=== PATIENT | female | born 1955 | race Caucasian/White ===

== ENCOUNTER 2016-05-24 10:30 | Observation (INO) | payer OTHER ==
[2016-05-24] MEDS ORDERED: ASPIRIN 325 MG TAB PO ONE (10:50)
--- NOTE | 2016-05-24 10:52 | CPEKG ---
Heart Rate: 82 RR Interval: 732 P-R Interval: 176 QRSD Interval: 94 QT Interval: 384 QTC Interval: 449 P [place]: 54 QRS [place]: 4 T Wave [place]: 23 EKG Severity - BORDERLINE ECG - EKG Impression: SINUS RHYTHM EKG Impression: BORDERLINE INFERIOR Q WAVES Electronically Signed By: Jack Carrasco 24-May-2016 15:41:11
[2016-05-24 11:07] LABS: % IMMATURE GRANULYOCYTES 0.2 % (0.0-1.1); ABSOLUTE IMMATURE GRANULOCYTES 0.01 10^3/uL (0.00-0.10); ADD DIFF? NO; ADD MORPH? NO; ADD SCAN? NO; ATYPICAL LYMPHOCYTE FLAG 0 (0-99); FRAGMENT RBC FLAG 0 (0-99); HEMATOCRIT 44.3 % (38.0-47.0); HEMOGLOBIN 14.5 g/dL (12.6-16.3); LEFT SHIFT FLG 0 (0-99); LIPEMIA HEMOLYSIS FLAG 80 (0-99); MEAN CELL HEMOGLOBIN 31.7 pg (27.9-34.1); MEAN CELL HEMOGLOBIN CONCENTR. 32.7 g/dL (32.4-36.7); MEAN CELL VOLUME 96.7 fL (81.5-99.8); MEAN PLATELET VOLUME 9.4 fL (8.7-11.7); PLATELET CLUMPS FLAG 0 (0-99); PLATELET COUNT 202 10^3/uL (150-400); RED BLOOD CELL COUNT 4.58 10^6/uL (4.18-5.33); RED CELL DISTRIBUTION WIDTH 12.1 % (11.5-15.2)
[2016-05-24] MEDS ORDERED: NITROGLYCERIN 0.4 MG BTL SL ONE (11:15)
[2016-05-24] MEDS ORDERED: NS 1,000 ML IV ONE (11:15)
--- NOTE | 2016-05-24 11:20 | UCPHY ---
H & P Patient Type: Established Chief Complaint Nursing Narrative: HERE WITH CP WOKE HER UP AT MIDNIGHT; THOUGHT IT WAS HEARTBURN; DID FALL BACK ASLEEP THEN REAWAKENED AT 0430 Time Seen by Provider: 05/24/16 11:03 HPI/ROS: This patient awakened with substernal chest pain described as sharp in achy in nature at midnight last night 8/10 intensity radiating to the left arm. She reports no associated symptoms except some paresthesias in the left arm the wax and wane. Pain is been constant since then though of lesser intensity. Currently the pain is 6/10 in the arm and 4-10 in the chest. She notes no exacerbating or alleviating factors except that may be slightly worse when she is lying on her left side. She has never had this discomfort before. She felt well last night when she went to bed. ROS: No fevers chills or other constitutional symptoms HEENT: No complaints pulmonary: No pleuritic pain. No coughing. Cardiovascular: No lightheadedness. No lower extremity swelling. She has no heart palpitations. No diaphoresis. No nausea or other GI symptoms except for some flatus last night. However flatus did not affect her chest pain. She reports no musculoskeletal complaints. No recent trauma. 10 point ROS is otherwise negative. Source: Patient Exam Limitations: No limitations - Personal History Current Tetanus Diphtheria and Acellular Pertussis (TDAP): Yes Tetanus Vaccine Date: WITHIN 10 YRS - Medical/Surgical History PMH: Hypertension Cholesterol status is unknown Hx Asthma: Yes Hx Chronic Respiratory Disease: No Hx Diabetes: No Hx Cardiac Disease: No Hx Renal Disease: No Hx Cirrhosis: No Hx Alcoholism: No Hx HIV/AIDS: No Hx Splenectomy or Spleen Trauma: No Other PMH: remote history of mono,HTN, WRIST SURG, C/S - Family History Significant Family History: No pertinent family hx - Social History Smoking Status: Never smoked Alcohol Use: Occasionally Drug Use: Other (Occasional marijuana no other drug use) - Physical Exam Exam: General Appearance: Alert, no distress. Eyes: Pupils equal and round no pallor or injection. ENT, Mouth: Mucous membranes moist. Respiratory: There are no retractions, lungs are clear to auscultation. Cardiovascular: Regular rate and rhythm. No murmur gallop or rub. No JVD. No peripheral edema. No leg tenderness. Gastrointestinal: Abdomen is soft and nontender, no masses, bowel sounds normal. Neurological: Alert with no focal deficits. Skin: Warm and dry, no rashes. Musculoskeletal: Neck is supple nontender. Extremities are symmetrical, full range of motion. Psychiatric: Mood and affect are normal DIFFERENTIAL DIAGNOSIS: After history and physical exam differential diagnosis was considered for angina, CT, pneumonia, pneumothorax, GERD Constitutional: Initial Vital Signs Temperature (C) 36.8 C 05/24/16 10:45 Heart Rate 93 05/24/16 10:45 Respiratory Rate 20 05/24/16 10:45 Blood Pressure 153/99 H 05/24/16 10:45 O2 Sat (%) 97 05/24/16 10:45 O2 Delivery Mode Room Air Allergies/Adverse Reactions: No Known Allergies Allergy (Verified 05/24/16 10:43) Home Medications: Medication Instructions Recorded Verapamil 09/17/14 Lysine 05/24/16 Multi-Day Vitamins 05/24/16 Medical Decision Making - Diagnostics EKG Interpretation: 12 lead EKG performed at 10:50 a.m. reveals sinus rhythm at 82 Intervals: Normal throughout [place]: Normal throughout Patient has Q-waves in 3. No previous EKG for comparison Overall assessment sinus rhythm with inferior Q-waves cannot rule out remote inferior CT. No evidence of acute ischemia. Repeat EKG performed at 11:55 a.m. after nitroglycerin with partial relief of chest pain reveals no interval change. Sinus rhythm 78 intervals and axis normal Q-waves unchanged. No new ST abnormalities. Please refer to trace master for complete read. Imaging: Chest x-ray: Normal by my interpretation ED Course/Re-evaluation: IV, monitor, aspirin 324 Sublingual nitroglycerin with partial relief of her symptoms down to mild in intensity. She received a 2nd supple nitroglycerin those placed in 0.5 inch paste. Discussion: Given the patient's risk factor of hypertension, age and symptoms concerning for angina think that she warrants admission for observation and further evaluation. Her EKG reveals no acute ischemic changes and 1st troponin is normal. However she does still have mild discomfort the persists. I spoke with Dr. Holly Bajwa-hospitalist ekg monitor for [facility] accepts patient for transfer to the [facility]. - Data Points Laboratory Results: Laboratory Results 05/24/16 11:03 05/24/16 11:03 05/24/16 11:03 WBC 6.07 10^3/uL (3.80-9.50) RBC 4.58 10^6/uL (4.18-5.33) Hgb 14.5 g/dL (12.6-16.3) Hct 44.3 % (38.0-47.0) MCV 96.7 fL (81.5-99.8) MCH 31.7 pg (27.9-34.1) MCHC 32.7 g/dL (32.4-36.7) RDW 12.1 % (11.5-15.2) Plt Count 202 10^3/uL (150-400) MPV 9.4 fL (8.7-11.7) Neut % (Auto) 56.1 % (39.3-74.2) Lymph % (Auto) 35.9 % (15.0-45.0) [place] % (Auto) 5.8 % (4.5-13.0) Eos % (Auto) 1.3 % (0.6-7.6) Baso % (Auto) 0.7 % (0.3-1.7) Nucleat RBC Rel Count 0.0 % (0.0-0.2) Absolute Neuts (auto) 3.41 10^3/uL (1.70-6.50) Absolute Lymphs (auto) 2.18 10^3/uL (1.00-3.00) Absolute Monos (auto) 0.35 10^3/uL (0.30-0.80) Absolute Eos (auto) 0.08 10^3/uL (0.03-0.40) Absolute Basos (auto) 0.04 10^3/uL (0.02-0.10) Absolute Nucleated RBC 0.00 10^3/uL (0-0.01) Immature Gran % 0.2 % (0.0-1.1) Immature Gran # 0.01 10^3/uL (0.00-0.10) Sodium 141 mEq/L (134-144) Potassium 3.6 mEq/L (3.5-5.2) Chloride 103 mEq/L (97-110) Carbon Dioxide 27 mEq/l (22-31) Anion Gap 11 mEq/L (8-16) BUN 13 mg/dL (7-23) Creatinine 0.7 mg/dL (0.6-1.0) Estimated GFR > 60 Glucose 124 H mg/dL (70-100) Calcium 9.3 mg/dL (8.5-10.4) Troponin I < 0.012 ng/mL (0-0.034) Medications Given: Discontinued Medications Aspirin (Aspirin) 325 mg PO EDNOW ONE Stop: 05/24/16 10:51 Last Admin: 05/24/16 11:01 Dose: 325 mg Sodium Chloride (Ns) 1,000 mls @ 0 mls/hr IV ONCE ONE PRN Reason: Wide Open Stop: 05/24/16 11:16 Last Admin: 05/24/16 11:19 Dose: 1,000 mls Nitroglycerin (Nitrostat) 0.4 mg SL EDNOW ONE Stop: 05/24/16 11:16 Last Admin: 05/24/16 11:20 Dose: 0.4 mg Nitroglycerin (Nitro-Bid 2%) 0.5 inch TP EDNOW ONE Stop: 05/24/16 12:33 Last Admin: 05/24/16 12:41 Dose: 0.5 inch Departure - Departure Disposition: [facility] Inpatient Acute Clinical Impression: Chest pain Qualifiers: Chest pain type: unspecified Qualifier Code: (R07.9) Chest pain, unspecified Condition: Fair - PQRS PQRS Measurement: NA
[2016-05-24 11:22] LABS: ANION GAP 11 mEq/L (8-16); CALCIUM 9.3 mg/dL (8.5-10.4); CARBON DIOXIDE 27 mEq/l (22-31); CHLORIDE 103 mEq/L (97-110); CREATININE 0.7 mg/dL (0.6-1.0); GLOMERULAR FILTRATION RATE > 60; GLUCOSE 124 mg/dL (70-100); POTASSIUM 3.6 mEq/L (3.5-5.2); SODIUM 141 mEq/L (134-144)
[2016-05-24 11:35] LABS: TROPONIN I < 0.012 ng/mL (0-0.034)
--- NOTE | 2016-05-24 11:45 | DX ---
PA and lateral chest. Clinical History: Chest pain Comparison Study: June 16, 2009.. Findings: The lungs are clear. No pleural disease identified. Heart size is normal. Visualized osseous structures appear normal. Impression: Normal chest.
--- NOTE | 2016-05-24 11:58 | CPEKG ---
Heart Rate: 78 RR Interval: 769 P-R Interval: 172 QRSD Interval: 94 QT Interval: 388 QTC Interval: 442 P [place]: 48 QRS [place]: 1 T Wave [place]: 24 EKG Severity - BORDERLINE ECG - EKG Impression: SINUS RHYTHM EKG Impression: BORDERLINE INFERIOR Q WAVES Electronically Signed By: Jack Carrasco 24-May-2016 15:41:03
[2016-05-24] MEDS ORDERED: NITROGLYCERIN 2% 1 GM PACKET TP ONE (12:32)
[2016-05-24] MEDS ORDERED: NITROGLYCERIN 0.4 MG BTL SL PRN (12:56)
[2016-05-24] MEDS ORDERED: ONDANSETRON 4 MG/2 ML VIAL IVP PRN (15:51)
[2016-05-24] MEDS ORDERED: ONDANSETRON DISINTEGRATING 4 MG TAB PO PRN (15:51)
[2016-05-24] MEDS: METOPROLOL TARTRATE 25 MG TAB PO SCH ×2 (16:55→21:33)
--- NOTE | 2016-05-24 16:55 | CPEKG ---
Heart Rate: 74 RR Interval: 811 P-R Interval: 188 QRSD Interval: 100 QT Interval: 412 QTC Interval: 457 P [place]: 38 QRS [place]: 7 T Wave [place]: 11 EKG Severity - NORMAL ECG - EKG Impression: SINUS RHYTHM Electronically Signed By: Tyron Granado 24-May-2016 20:38:20
[2016-05-24] MEDS: ACETAMINOPHEN 325 MG TAB PO PRN ×2 (16:56→21:32)
--- NOTE | 2016-05-24 18:00 | PDEACUHP ---
History and Physical - Chief Complaint chest pain - History of Present Illness 60 yo female with h/o hypertension presented to urgent care today after developing chest pain which awoke her at midnight and was again present this am. She described the pain as sharp and burning in her substernal region. She then developed aching in her left shoulder and arm. This has persisted. There has been associated numbness and tingling. Her arm pain is worse with abduction and she reports a h/o neck pain and stiffness. In urgent care, she received NTG x2 and full dose ASA. Her chest pain improved , but her arm continued to ache. She is transferred to [facility] for admission and further evaluation. History Information - Allergies/Home Medication List Allergies/Adverse Reactions: No Known Allergies Allergy (Verified 05/24/16 10:43) Home Medications: Verapamil ER [Calan SR/ER 180MG (*)] 180 mg PO DAILY 09/17/14 [Last Taken ] Lysine [LYSINE] 1,000 mg PO DAILY 05/24/16 [Last Taken 05/24/16] Multivitamins [Multivitamin (*)] 1 each PO DAILY 05/24/16 [Last Taken 05/24/16] I have personally reviewed and updated: family history, medical history, social history, surgical history - Past Medical History hypertension - Surgical History Reports: no pertinent surgical hx - Family History Positive for: non-pertinent Additional family history: no family h/o PHD - Social History Smoking Status: Never smoked Alcohol Use: Occasionally Drug Use: Other (Occasional marijuana no other drug use) Review of Systems ROS: 10pt was reviewed & negative except for what was stated in HPI & below Physical Exam Temp Pulse Resp BP Pulse Ox 36.6 C 75 16 153/94 H 98 05/24/16 14:47 05/24/16 16:55 05/24/16 14:47 05/24/16 16:55 05/24/16 14:47 Constitutional: no apparent distress Eyes: PERRL Ears, Nose, Mouth, Throat: moist mucous membranes Cardiovascular: regular rate and rhythym, no murmur, rub, or gallop Respiratory: no respiratory distress, clear to auscultation Gastrointestinal: normoactive bowel sounds, soft, non-tender abdomen Skin: warm Musculoskeletal: full muscle strength, other (+chest wall tenderness to palpation. +left trapezius tenderness ) Neurologic: AAOx3 Psychiatric: interacting appropriately Lab Data & Imaging Review 05/24/16 11:03 05/24/16 11:03 WBC 6.07 10^3/uL (3.80-9.50) 05/24/16 11:03 RBC 4.58 10^6/uL (4.18-5.33) 05/24/16 11:03 Hgb 14.5 g/dL (12.6-16.3) 05/24/16 11:03 Hct 44.3 % (38.0-47.0) 05/24/16 11:03 MCV 96.7 fL (81.5-99.8) 05/24/16 11:03 MCH 31.7 pg (27.9-34.1) 05/24/16 11:03 MCHC 32.7 g/dL (32.4-36.7) 05/24/16 11:03 RDW 12.1 % (11.5-15.2) 05/24/16 11:03 Plt Count 202 10^3/uL (150-400) 05/24/16 11:03 MPV 9.4 fL (8.7-11.7) 05/24/16 11:03 Neut % (Auto) 56.1 % (39.3-74.2) 05/24/16 11:03 Lymph % (Auto) 35.9 % (15.0-45.0) 05/24/16 11:03 [place] % (Auto) 5.8 % (4.5-13.0) 05/24/16 11:03 Eos % (Auto) 1.3 % (0.6-7.6) 05/24/16 11:03 Baso % (Auto) 0.7 % (0.3-1.7) 05/24/16 11:03 Nucleat RBC Rel Count 0.0 % (0.0-0.2) 05/24/16 11:03 Absolute Neuts (auto) 3.41 10^3/uL (1.70-6.50) 05/24/16 11:03 Absolute Lymphs (auto) 2.18 10^3/uL (1.00-3.00) 05/24/16 11:03 Absolute Monos (auto) 0.35 10^3/uL (0.30-0.80) 05/24/16 11:03 Absolute Eos (auto) 0.08 10^3/uL (0.03-0.40) 05/24/16 11:03 Absolute Basos (auto) 0.04 10^3/uL (0.02-0.10) 05/24/16 11:03 Absolute Nucleated RBC 0.00 10^3/uL (0-0.01) 05/24/16 11:03 Immature Gran % 0.2 % (0.0-1.1) 05/24/16 11:03 Immature Gran # 0.01 10^3/uL (0.00-0.10) 05/24/16 11:03 Sodium 141 mEq/L (134-144) 05/24/16 11:03 Potassium 3.6 mEq/L (3.5-5.2) 05/24/16 11:03 Chloride 103 mEq/L (97-110) 05/24/16 11:03 Carbon Dioxide 27 mEq/l (22-31) 05/24/16 11:03 Anion Gap 11 mEq/L (8-16) 05/24/16 11:03 BUN 13 mg/dL (7-23) 05/24/16 11:03 Creatinine 0.7 mg/dL (0.6-1.0) 05/24/16 11:03 Estimated GFR > 60 05/24/16 11:03 Glucose 124 mg/dL (70-100) H 05/24/16 11:03 Calcium 9.3 mg/dL (8.5-10.4) 05/24/16 11:03 Troponin I 0.013 ng/mL (0-0.034) 05/24/16 16:50 Assessment & Plan Assessment: Chest pain (Acute) Hypertension Pt will be admitted for serial troponins. Initial Trop neg. EKG non-ischemic and no dynamic changes, but inferior Q waves noted. With her h/o hypertension and EKG changes, will obtain echo to evaluate for WMA. If trops remain neg and echo reassuring, will proceed with exercise treadmill stress test in AM. Will give daily ASA, check lipid status, continue her home anti-hypertensives and add low dose metoprolol. Nitro paste and morphine for pain control. Full code Dispo - obs
[2016-05-24] MEDS: NITROGLYCERIN 2% 1 GM PACKET TP SCH (18:03)
[2016-05-24 21:58] VITALS: O2SAT 93
[2016-05-25] MEDS: NITROGLYCERIN 2% 1 GM PACKET TP SCH ×2 (00:53→06:08)
[2016-05-25] MEDS: ACETAMINOPHEN 325 MG TAB PO PRN (05:58)
[2016-05-25 06:17] LABS: CHOLESTEROL 227 mg/dL (140-220); CHOLESTEROL/HDL RATIO 4.54 RATIO (1.00-4.44); HIGH DENSITY LIPOPROTEIN 50 mg/dL (40-85); LDL/HDL RATIO 3.06 RATIO (1.00-3.22); LOW DENSITY LIPOPROTEIN 153 mg/dL (80-100); NON-HIGH DENSITY LIPOPROTEIN 177 mg/dL (90-129); TRIGLYCERIDE 123 mg/dL (35-135); VERY LOW DENSITY LIPOPROTEINS 24 mg/dL (8-25)
[2016-05-25] MEDS ORDERED: ASPIRIN 81 MG CHEWABLE TAB PO SCH (09:00)
[2016-05-25] MEDS ORDERED: VERAPAMIL ER 180 MG TAB PO SCH (09:00)
--- NOTE | 2016-05-25 09:01 | CPEKG ---
Heart Rate: 69 RR Interval: 870 P-R Interval: 192 QRSD Interval: 92 QT Interval: 392 QTC Interval: 420 P [place]: 47 QRS [place]: 15 T Wave [place]: 25 EKG Severity - NORMAL ECG - EKG Impression: SINUS RHYTHM Electronically Signed By: Tyron Granado 25-May-2016 14:42:23
[2016-05-25 10:09] VITALS: BP 129/92; PULSE 96; RESP 15; TEMP 97.2
[2016-05-25] MEDS: METOPROLOL TARTRATE 25 MG TAB PO SCH (10:10)
--- NOTE | 2016-05-25 10:58 | CPR ---
[f rep st] NONINVASIVE CARDIAC PROCEDURE REPORT DATE OF PROCEDURE: 05/25/2016 REASON FOR TEST: 1. Left-sided chest pain and left arm pain. 2. Hypertension. Resting EKG shows a regular sinus rhythm with a ventricular rate of 67. She has late R-wave progression in the anterior lead. No ischemic changes noted. Resting blood pressure 134/74, resting heart rate 67. TREADMILL PORTION: She was exercised according to the Yaniv protocol for a total of 6 minutes and 40 seconds. Maximal heart rate 153, which was 92% of maximal. Maximal met level 7.7. Max blood pressure 184/76. She had no ischemic changes noted. She did have 1 couplet. She was asymptomatic. Test stopped due to maximal effort. RECOVERY: She spontaneously recovered quickly. Her heart rate was under 100 at 1-1/2 minutes. Recovery blood pressure was 140/86. Recovery heart rate 97. There were no ischemic changes. She remained asymptomatic. At this time, she is stable to return to her room. SUMMARY: This is a normal exercise treadmill stress test. /[id number]/MODL MTDD
--- NOTE | 2016-05-25 16:00 | ECHO ---
[id number] + + [address] : : [place] [address] : : [phone] + Adult Echocardiographic Report + ---+ :Name: MANJIT VÁSQUEZ Date: 05/24/2016 05:09 PM : : Hospital Admission Number: [id number] : :: 1955 Gender: Female Height: 67 in : :Age: 60 yrs Race: WH Weight: 210 l b : :Reason For Study: Q waves inferior leads, CP, eval for WMA : : BSA: 2.1 mete rs2: :History: No previous : + ---+ MMode/2D Measurements & Calculations IVSd: 1.0 cm RVDd: 3.1 cm FS: 34.3 % LVOT diam: 1.7 cm LVPWd: 0.92 cm LVIDd: 3.9 cm EDV(Teich): LVOT area: LVIDs: 2.6 cm 67.5 ml 2.3 cm2 ESV(Teich): 24.4 ml EF(Teich): 63.9 % LVLd ap4: 8.1 cm SV(MOD-sp4): EDV(MOD-sp4): 52.0 ml 80.0 ml LVLs ap4: 6.1 cm ESV(MOD-sp4): 28.0 ml EF(MOD-sp4): 65.0 % Normal Measurement Values: + + :LVIDd (3.5-5.7cm) IVSd (0.6-1.1cm) LVPWd (0.6-1.1cm) Aortic Root (2.0-3.7cm)Left Atrium (1.5-4.0cm): :LV Vol(d) (76-115ml) LV Vol(s) (29-48ml) Ejec Fraction (50-65%)PV Wilman (0.6- 1.2m/s) TV Wilman (0.4-1.0m/s) : :MV E Wilman (0.8-1.0m/s)MV A Wilman (0.3-1.0m/s)LVOT Wilman (0.7-1.2m/s) Asc Ao Wilman ( 0.9-1.8m/s) : + + Doppler Measurements & Calculations MV E max wilman: MV V2 max: Ao V2 max: LV V1 max: 78.0 cm/sec 98.3 cm/sec 135.0 cm/sec 115.0 cm/sec MV A max wilman: MV max PG: Ao max PG: LV V1 max P.5 cm/sec 3.9 mmHg 7.3 mmHg 5.3 mmHg MV E/A: 0.97 MV V2 mean: Ao mean PG: LV V1 mean PG: MV dec time: 71.1 cm/sec 3.0 mmHg 3.0 mmHg 0.17 sec MV mean PG: Ao V2 mean: LV V1 mean: 2.0 mmHg 85.7 cm/sec 79.1 cm/sec MV V2 VTI: 22.6 cmAo V2 VTI: 25.1 cm LV V1 VTI: 26.3 cm MVA(VTI): 2.6 cm2 CANDELARIA(I,D): 2.4 cm2 CANDELARIA(V,D): 1.9 cm2 MR max wilman: SV(LVOT): 59.7 ml PA V2 max: TR max wilman: 354.0 cm/sec 173.5 cm/sec 281.0 cm/sec MR max PG: PA max PG: TR max P.1 mmHg 12.1 mmHg 31.6 mmHg RAP systole: 15.0 mmHg RVSP(TR): 46.6 mmHg Left Ventricle The left ventricle is normal in size and function. There is normal left ventricular wall thickness. Ejection Fraction = 60-65%. No regional wall motion abnormalities noted. Right Ventricle The right ventricle is normal in size and function. Atria The left atrial size is normal. Right atrial size is normal. The interatrial septum is intact with no evidence for an atrial septal defect. Mitral Valve The mitral valve is normal in structure and function. There is no mitral valve stenosis. There is trace to mild mitral regurgitation. Tricuspid Valve The tricuspid valve is normal in structure and function. There is no tricuspid stenosis. There is mild tricuspid regurgitation. Right ventricular systolic pressure is 46.6mmHg. There is Doppler evidence for moderate pulmonary hypertension. Aortic Valve The aortic valve is not well visualized. There is no aortic stenosis. There is no aortic insufficiency. Pulmonic Valve The pulmonic valve is normal in structure and function. There is no pulmonic valvular stenosis. There is no pulmonic valvular regurgitation. Great Vessels The aortic root is normal size. Pericardium/Pleural There is a fat pad seen. There is no pericardial effusion. Conclusion A complete two-dimensional transthoracic echocardiogram was performed (2D, M-mode, Doppler and color flow Doppler). The left ventricle is normal in size and function. Ejection Fraction = 60-65%. Normal wall motion. There is trace to mild mitral regurgitation. Normal appearing cardiac valves. There is mild tricuspid regurgitation. Right ventricular systolic pressure is 46.6mmHg. Final Reading Physician: Sunny Gramajo signed on 05/25/2016 03:58 PM Ordering Physician: Laina Jama Performed By: Marie Abdul
--- NOTE | 2016-05-25 21:05 | GDS ---
[f rep st] DISCHARGE SUMMARY DISCHARGE DIAGNOSES: 1. Chest pain, resolved. 2. Hypertension. PROCEDURES: Exercise treadmill stress test. May 25, 2016 was negative for ischemia. HISTORY: For details, please see dictated history and physical dated May 24, 2016. In brief, th e patient is a 60-year-old female with history of hypertension, who presents to the emergency departm ent with sharp, burning chest pain. She was admitted to the hospital for further evaluation. HOSPITAL COURSE: Prior to admission, the patient received nitroglycerin x2 at the urgent care, as we ll as a full dose of aspirin. Her chest pain resolved but she continued to have aching in her left a rm. She did have chest wall tenderness on palpation. Her troponins were negative. Her EKG was julian schemic and repeat EKG showed no dynamic changes. However, she did have inferior Q-waves noted. The refore, an echocardiogram was performed, which did not reveal any wall motion abnormalities. Her eje ction fraction was 60% to 65%. There was no evidence of valve disease. She underwent exercise tread mill stress test the following morning, which was normal. She remained chest pain free. I suspect h er chest pain may be due to acid reflux symptoms versus musculoskeletal source. She did have some tr apezius tightness and her left arm pain seemed to be worse with abduction. She is advised to try david e [id number] Pepcid or Zantac. With respect to her blood pressure, she was given her usual outpatient verapamil dose and was also st arted on low-dose metoprolol. She does still have diastolic blood pressure in the 90s on day of ; thus, I will continue her on the oral metoprolol and she will need close followup with her [facility] physician to recheck her blood pressure. Given her risk factors, including hypertension, h yperlipidemia, in addition to the EKG changes, she was started on baby aspirin. She can revisit this issue with her primary care physician, determine if this is needed for ocean transportation intermediary. Fasting lipid panel revealed an LDL of 153, HDL of 50, triglycerides 123, her total cholesterol 227. DISPOSITION: Patient is discharged home in stable condition. DISCHARGE MEDICATIONS: Please see [facility] for complete updated medication list. New medications on discharge include: 1. Aspirin enteric-coated 81 mg p.o. daily #30, no refills. 2. Metoprolol 12.5 mg p.o. twice daily, #60, no refills. 3. Continue other outpatient medicines as prescribed. FOLLOWUP: Patient is to follow up with Dr. Marcos Armstrong, her primary care physician, in 1-2 weeks t o recheck her blood pressure and discuss her lipid status. /[id number]/MODL
== END 2016-05-25 11:54 | disposition home or self-care (01) ==
LOC: CED 10:30 → CEDHOLD 12:31 → F1N 14:28
PROVIDERS: ADMIT Internal Medicine; ATTEND Internal Medicine
DX: R07.9 Chest pain, unspecified (principal); I10 Essential (primary) hypertension
CPT/HCPCS: 71020-PO; 80048-PO; 84484-PO; 85025-PO; 96360-PO; 96361-PO; G0378; G0463-PO

== ENCOUNTER → 2016-09-20 | Outpatient (CLI) | payer OTHER | LOC: CIMAGING 11:31 | PROVIDERS: ATTEND Internal Medicine | DX: R05 Cough (principal) | CPT/HCPCS: 71020-PO ==

== ENCOUNTER → 2017-04-10 | Outpatient (CLI) | payer OTHER | LOC: FIMAGING 16:22 | PROVIDERS: ATTEND Internal Medicine | DX: Z12.31 Encounter for screening mammogram for malignant neoplasm of breast (principal) | CPT/HCPCS: G0202 ==

== ENCOUNTER → 2018-05-06 | Outpatient (CLI) | payer OTHER | LOC: FIMAGING 15:33 | PROVIDERS: ATTEND Internal Medicine | DX: Z12.31 Encounter for screening mammogram for malignant neoplasm of breast (principal) ==